=== PATIENT | female | born 1980 ===

== ENCOUNTER 2023-04-10 13:43 | Outpatient (CLI) | payer OTHER | END 2023-04-10 15:17 | disposition home or self-care (01) | LOC: PRENATAL 13:43 | PROVIDERS: ATTEND Obstetrics & Gynecology Maternal & Fetal Medicine | DX: O36.80X0 Pregnancy with inconclusive fetal viability, not applicable or unspecified (principal); O09.519 Supervision of elderly primigravida, unspecified trimester; O34.10 Maternal care for benign tumor of corpus uteri, unspecified trimester; Z3A.12 12 weeks gestation of pregnancy ==

== ENCOUNTER 2023-05-31 13:24 | Outpatient (CLI) | payer OTHER | END 2023-05-31 16:22 | disposition home or self-care (01) | LOC: PRENATAL 13:24 | PROVIDERS: ATTEND Obstetrics & Gynecology Maternal & Fetal Medicine | DX: O35.3XX0 Maternal care for (suspected) damage to fetus from viral disease in mother, not applicable or unspecified (principal); O09.519 Supervision of elderly primigravida, unspecified trimester; O34.10 Maternal care for benign tumor of corpus uteri, unspecified trimester; Z3A.19 19 weeks gestation of pregnancy ==

== ENCOUNTER 2023-08-28 12:56 | Outpatient (CLI) | payer OTHER | END 2023-08-28 12:57 | disposition home or self-care (01) | LOC: PRENATAL 12:56 | PROVIDERS: ATTEND Obstetrics & Gynecology Maternal & Fetal Medicine | DX: O26.849 Uterine size-date discrepancy, unspecified trimester (principal); O36.8199 Decreased fetal movements, unspecified trimester, other fetus; O09.519 Supervision of elderly primigravida, unspecified trimester; O34.10 Maternal care for benign tumor of corpus uteri, unspecified trimester; Z3A.32 32 weeks gestation of pregnancy ==